=== PATIENT | female | born 1980 | race Caucasian/White ===

== ENCOUNTER → 2018-04-30 | Outpatient (CLI) | payer BC | LOC: FIMAGING 09:56 | PROVIDERS: ATTEND Advanced Practice Midwife | DX: O09.522 Supervision of elderly multigravida, second trimester (principal); Z3A.21 21 weeks gestation of pregnancy ==

== ENCOUNTER 2018-09-07 00:55 | Inpatient (IN) | payer BC ==
[2018-09-07] MEDS ORDERED: LIDOCAINE 1% 300 MG/30 ML SDV SC PRN (01:37)
[2018-09-07] MEDS ORDERED: MISOPROSTOL 200 MCG TAB PR PRN (01:37)
[2018-09-07] MEDS ORDERED: EPSOM SALT 454 GM TP PRN (01:37)
[2018-09-07] MEDS ORDERED: LR 1,000 ML IV PRN (01:37)
[2018-09-07] MEDS ORDERED: IBUPROFEN 600 MG TAB PO PRN (01:37)
[2018-09-07] MEDS ORDERED: OLIVE OIL 118 ML BTL MISC PRN (01:37)
[2018-09-07] MEDS ORDERED: OXYTOCIN/RINGERS LACTATE 1,000 ML IV PRN (01:37)
--- NOTE | 2018-09-07 01:49 | PDGENHP ---
History and Physical History and Physical: Care: [facility], [place] [facility] HPI: Patient is a 38 yo G 4 P 2 @ 39.4 weeks that presents to L&D with complaints of strong contractions and SROM EDC: 09/10/2018which is based on LMP: 12/04/2017 which is known and consistent with Ultrasound at 8 weeks. Her is complicated by: Hx of precipitous ; vaginal breech , mild anemia and AMA Review of Systems: Constitutional: Denies any fever, chills, or fatigue HEENT: denies any visual changes, difficulty swallowing, hearing loss Cardiovascular: Denies any chest pain, palpitations, leg swelling Respiratory: denies any cough, wheezing, or shortness of breathe GI: Denies any nausea, vomiting, diarrhea, constipation : denies any dysuria, urgency, frequency, vaginal bleeding Musculoskeletal: denies any muscle or bone pain Skin: denies any rashes Neuro: denies any headache, seizures, lightheadedness, dizziness, or loss of consciousness Psychiatric: denies any depression, anxiety, or SI/HI thoughts HISTORY: Previous OB history: 2 vaginal births, both PROM, one at 36.5 weeks vaginal footling breech (without complications) Past medical history: none significant Past surgical history: Ankle internal fixation '04 Social: Denies any alcohol, tobacco, or drug use. Family history: Not relevant Medications: PNV Allergies (list reaction): NKDA LABS: Rh: O+ ABS: Neg Rubella: Immune HbsAg: NR HIV: NR VDRL: NR 1hr: 96 GC: Neg Chlamydia: Neg Pap: Normal GBS: neg BMI: (prepreg) 21 PHYSICAL EXAM: Constitutional: WN, A&Ox3 HEENT: normocephalic atraumatic, supple Skin: Warm, dry, intact Heart: RRR, no murmur Chest: CTA-B Abdomen: Soft, nontender, gravid SVE: 9 cm on arrival; Ruptured with clear fluid Extremities: edema, negative homans sign Neuro: grossly normal Psych: normal affect assessment: FHT baseline 110 +accels, no decels, moderate variability Contractions: toco q 3 Assessment: 1) 38 yo G 4 P 2 with IUP@ 39.4 2) Active labor 3) GBS neg 4) Cat 1 FHR tracing Plan: 1) Admit to L&D 2) Expectant management 3) Anticipate
--- NOTE | 2018-09-07 01:53 | OBDEL ---
Info Type: Vaginal Presentation at Delivery: Vertex L&D Analgesia/Anesthesia Type: None GBS+: No Indications for Delivery: Spontaneous Labor Vaginal Delivery - Delivery Provider Delivery Physician/CNM: Lanie Zarco - Labor and Delivery Onset of Contractions Date: 09/06/18 Onset of Contractions Time: 23:35 Onset of Contractions Type: Spontaneous Rupture of Membranes Date: 09/07/18 Rupture of Membranes Time: 00:15 Rupture of Membranes Type: Spontaneous Amniotic Fluid Color: Clear Dilation Complete Date: 09/07/18 Dilation Complete Time: 01:15 Placenta Delivery Date: 09/07/18 Placenta Delivery Time: 01:28 Total Hours of Labor: 1 Laceration: Other (Specify) (Intact) Vaginal Sponge Count Correct: Yes Vaginal Needle Count Correct: Yes Vaginal Sweep Performed: Yes Delivery Events: Other (Specify) (precipitous ; delivered shortly after arrival) Data CANDIDA: 09/10/18 Gestational Age: 39 week(s) and 4 day(s) [place] Delivery Date: 09/07/18 Delivery Time: 01:17 Sex of : Female Score (1 Min): 8 Score (5 Min): 9 ICD10 Worksheet Patient Problems: Problems Problem Status Onset Acute Precipitous delivery Acute - ICD10 Problem Qualifiers (1) Precipitous delivery
[2018-09-07] MEDS ORDERED: HYDROCORTISONE 0.5% CREAM TP PRN (01:54)
[2018-09-07] MEDS: IBUPROFEN 600 MG TAB PO SCH ×3 (09:01→21:06)
[2018-09-07] MEDS: DOCUSATE SODIUM 100 MG CAP PO PRN (09:01)
[2018-09-08] MEDS: IBUPROFEN 600 MG TAB PO SCH ×2 (03:03→09:20)
[2018-09-08 09:17] VITALS: BP 129/79
[2018-09-08] MEDS: DOCUSATE SODIUM 100 MG CAP PO PRN (09:20)
--- NOTE | 2018-09-08 10:41 | OBGCSDC ---
General Delivery Information - General Info : 4 Para: 3 Abortions: 0 Type: Vaginal L&D Analgesia/Anesthesia Type: None Admission Date: 09/07/18 - Hospital Course : 09/08/18 10:40 normal pp progress. Breast feeding well. Bleeding is minimal. Pain management effective. VSS Vaginal - Delivery Provider Delivery Physician/CNM: Lanie Zarco - Diagnosis Labor: Spontaneous Rupture of Membranes Type: Spontaneous Amniotic Fluid Color: Clear Laceration: Other (Specify) (Intact) Delivery Events: Other (Specify) (precipitous ; delivered shortly after arrival) [place] Data CNADIDA: 09/10/18 Gestational Age: 39 week(s) and 5 day(s) [place] Delivery Date: 09/07/18 Delivery Time: 01:17 Sex of : Female Weight (gm): 3538 g Score (1 Min): 9 Score (5 Min): 9 Discharge Information - Discharge Information Condition: Good Instruction/Follow Up: Two Weeks, Four Weeks, Six Weeks
== END 2018-09-08 13:42 | disposition home or self-care (01) | DRG 807 ==
LOC: FLD 00:55 → OBSVTOIN 00:55 → FOB 03:19
PROVIDERS: ADMIT Advanced Practice Midwife; ATTEND Advanced Practice Midwife
PROC: 10E0XZZ Delivery of Products of Conception, External Approach (ICD-10-PCS; principal; 2018-09-07)
DX: O62.3 Precipitate labor (principal); Z3A.39 39 weeks gestation of pregnancy; Z37.0 Single live birth